=== PATIENT | female | born 1975 | race Caucasian/White ===

== ENCOUNTER 2019-02-08 16:50 | Inpatient (IN) | payer OTHER ==
[2019-02-08 18:42] LABS: ADD MAN DIFF? NO
[2019-02-08 18:48] LABS: WHITE BLOOD COUNT 7.1 10^3/ul (4.8-10.8)
[2019-02-08 18:48] LABS: BASOPHILS % 0.6 % (0.0-2.0); EOSINOPHILS # 0.1 10^3/ul (0.0-0.5); EOSINOPHILS % 0.8 % (0.0-7.0); HEMATOCRIT 34.9 % (37.0-47.0); HEMOGLOBIN 10.6 g/dl (12.0-16.0); LYMPHOCYTES # 1.6 10^3/ul (0.8-2.9); MEAN CORPUSCULAR HGB CONC 30.4 g/dl (32.0-37.0); MEAN PLATELET VOLUME 9.1 fl (7.4-10.4); MONOCYTE # 0.3 10^3/ul (0.3-0.9); MONOCYTES % 4.2 % (0.0-11.0); NEUTROPHIL # 5.1 10^3/ul (1.6-7.5); PLATELET COUNT 275 10^3/UL (140-415); RED BLOOD COUNT 4.42 10^6/ul (4.20-5.40); RED CELL DISTRIBUTION WIDTH 15.8 % (11.5-14.5)
[2019-02-08 18:58] LABS: URINE BLOOD (Dip) POC Trace-intact (NEGATIVE); URINE GLUCOSE (Dip) POC Negative (NEGATIVE); URINE KETONES (Dip) POC Negative (NEGATIVE); URINE LEUKOCYTE EST (Dip) POC Negative (NEGATIVE); URINE NITRITE (Dip) POC Negative (NEGATIVE); URINE TOTAL PROTEIN POC Negative (NEGATIVE)
[2019-02-08 18:58] LABS: URINE PH (Dip) POC 7.5 (5.0-8.5)
[2019-02-08 19:08] LABS: INR 1.17; PT RATIO 1.2
[2019-02-08 19:09] LABS: ALANINE AMINOTRANSFERASE 15 IU/L (13-69); ALBUMIN 4.3 g/dl (3.3-4.9); ALBUMIN/GLOBULIN RATIO 0.93; ALKALINE PHOSPHATASE 62 IU/L (42-121); ANION GAP 8 (5-13); ASPARTATE AMINO TRANSFERASE 18 IU/L (15-46); BILIRUBIN,INDIRECT 1.1 mg/dl (0-1.1); BILIRUBIN,TOTAL 1.1 mg/dl (0.2-1.3); BLOOD UREA NITROGEN 9 mg/dl (7-20); CALCIUM 9.4 mg/dl (8.4-10.2); CARBON DIOXIDE 28 mmol/L (21-31); CHLORIDE 104 mmol/L (97-110); CREATININE 0.74 mg/dl (0.44-1.00); Estimated GFR > 60 mL/min (>60); GLUCOSE 122 mg/dl (70-220); POTASSIUM 3.9 mmol/L (3.5-5.1); SODIUM 140 mmol/L (135-144); TOTAL PROTEIN 8.9 g/dl (6.1-8.1)
[2019-02-08] MEDS: PIPER-TAZO 3.375 GM IV (PMX) 100 ML IVPB (19:26)
[2019-02-08] MEDS: VANCOMYCIN 1 GM (PMX) 250 ML IVPB (19:30)
[2019-02-08 19:55] LABS: ERYTHROCYTE SEDIMENTATION RATE 27 mm/Hr (0-20)
[2019-02-08] MEDS ORDERED: DOCUSATE SODIUM 100 MG CAP PO (20:00)
[2019-02-08] MEDS ORDERED: NACL 0.9% 3 ML SYG IV (20:00)
[2019-02-08] MEDS ORDERED: ONDANSETRON 4 MG INJ IV (20:00)
[2019-02-08] MEDS ORDERED: BISACODYL (EC) 5 MG TAB PO (20:00)
[2019-02-08] MEDS ORDERED: HYDROCODONE/APAP (5/325) TAB PO (20:00)
[2019-02-08 22:50] LABS: LACTIC ACID 1.6 mmol/L (0.5-2.0)
[2019-02-09] MEDS ORDERED: VANCOMYCIN IV PER PHARMACY XX
[2019-02-09] MEDS: ACETAMINOPHEN 325 MG TAB PO ×2 (00:12→18:26)
[2019-02-09] MEDS: PIPER-TAZO 3.375 GM IV (PMX) 100 ML IVPB ×4 (01:08→21:57)
[2019-02-09 02:18] LABS: LACTIC ACID 1.9 mmol/L (0.5-2.0)
[2019-02-09] MEDS: LIDOCAINE 1% (MPF) 5 ML VIAL SC (03:00)
[2019-02-09] MEDS: VANCOMYCIN 1 GM 250 ML IVPB (04:39)
[2019-02-09] MEDS: ATENOLOL 25 MG TAB PO (08:17)
[2019-02-09] MEDS: HYDROCHLOROTHIAZIDE 25 MG TAB PO (08:17)
[2019-02-09] MEDS: LOSARTAN 50 MG TAB PO (08:18)
[2019-02-09] MEDS: LEVOTHYROXINE 125 MCG TAB PO (08:18)
[2019-02-09 08:21] LABS: ADD MAN DIFF? NO
[2019-02-09 08:28] LABS: WHITE BLOOD COUNT 6.1 10^3/ul (4.8-10.8)
[2019-02-09 08:28] LABS: BASOPHIL # 0.1 10^3/ul (0.0-0.1); BASOPHILS % 0.8 % (0.0-2.0); EOSINOPHILS # 0.1 10^3/ul (0.0-0.5); EOSINOPHILS % 2.3 % (0.0-7.0); HEMATOCRIT 34.1 % (37.0-47.0); HEMOGLOBIN 10.4 g/dl (12.0-16.0); LYMPHOCYTES % 32.9 % (15.0-51.0); MEAN CORPUSCULAR HGB CONC 30.5 g/dl (32.0-37.0); MEAN CORPUSCULAR VOLUME 78.6 fl (82.0-101.0); MONOCYTE # 0.4 10^3/ul (0.3-0.9); MONOCYTES % 6.1 % (0.0-11.0); NEUTROPHIL # 3.5 10^3/ul (1.6-7.5); NEUTROPHILS % 57.6 % (39.0-77.0); PLATELET COUNT 251 10^3/UL (140-415); RED BLOOD COUNT 4.34 10^6/ul (4.20-5.40); RED CELL DISTRIBUTION WIDTH 16.1 % (11.5-14.5)
[2019-02-09 08:43] LABS: HEMOGLOBIN A1C 5.4 % (0-5.9)
[2019-02-09 08:59] LABS: ALANINE AMINOTRANSFERASE 12 IU/L (13-69); ALBUMIN 3.8 g/dl (3.3-4.9); ALBUMIN/GLOBULIN RATIO 1.08; ALKALINE PHOSPHATASE 49 IU/L (42-121); ANION GAP 13 (5-13); ASPARTATE AMINO TRANSFERASE 15 IU/L (15-46); BILIRUBIN,INDIRECT 1.3 mg/dl (0-1.1); BILIRUBIN,TOTAL 1.3 mg/dl (0.2-1.3); BLOOD UREA NITROGEN 8 mg/dl (7-20); CALCIUM 9.2 mg/dl (8.4-10.2); CARBON DIOXIDE 26 mmol/L (21-31); CHLORIDE 103 mmol/L (97-110); CHOL/HDL RATIO 3.7 RATIO; CHOLESTEROL 148 mg/dl (100-200); CREATININE 0.76 mg/dl (0.44-1.00); Estimated GFR > 60 mL/min (>60); GLUCOSE 113 mg/dl (70-220); HDL CHOLESTEROL 39 mg/dl (34-88); LDL CHOLESTEROL,CALCULATED 89 mg/dl; MAGNESIUM 1.8 mg/dl (1.7-2.5); POTASSIUM 4.2 mmol/L (3.5-5.1); SODIUM 142 mmol/L (135-144); TOTAL PROTEIN 7.3 g/dl (6.1-8.1); TRIGLYCERIDES 99 mg/dl (0-149)
[2019-02-09] MEDS ORDERED: NON-FORMULARY/PATIENT OWN MED (Losartan-Hydrochlorothiazide (Losartan-HCTZ) 1 TAB) PO (09:00)
[2019-02-09] MEDS ORDERED: LEVOTHYROXINE 125 MCG TAB PO (09:00)
[2019-02-09 09:28] LABS: ERYTHROCYTE SEDIMENTATION RATE 35 mm/Hr (0-20)
[2019-02-09] MEDS: VANCOMYCIN HCL 1.5 GM in SOD CHLORIDE 0.9% 250 ML IVPB (16:25)
[2019-02-10] MEDS: PIPER-TAZO 3.375 GM IV (PMX) 100 ML IVPB (01:25)
[2019-02-10] MEDS: VANCOMYCIN HCL 1.5 GM in SOD CHLORIDE 0.9% 250 ML IVPB (04:33)
[2019-02-10 08:01] LABS: ADD MAN DIFF? NO
[2019-02-10 08:07] LABS: WHITE BLOOD COUNT 5.6 10^3/ul (4.8-10.8)
[2019-02-10 08:07] LABS: BASOPHIL # 0.1 10^3/ul (0.0-0.1); BASOPHILS % 0.9 % (0.0-2.0); EOSINOPHILS # 0.1 10^3/ul (0.0-0.5); EOSINOPHILS % 2.3 % (0.0-7.0); HEMATOCRIT 35.4 % (37.0-47.0); LYMPHOCYTES # 1.5 10^3/ul (0.8-2.9); LYMPHOCYTES % 26.6 % (15.0-51.0); MEAN CORPUSCULAR HEMOGLOBIN 24.1 pg (29.0-33.0); MEAN CORPUSCULAR HGB CONC 31.1 g/dl (32.0-37.0); MEAN CORPUSCULAR VOLUME 77.5 fl (82.0-101.0); MEAN PLATELET VOLUME 9.2 fl (7.4-10.4); MONOCYTE # 0.3 10^3/ul (0.3-0.9); MONOCYTES % 5.4 % (0.0-11.0); NEUTROPHIL # 3.6 10^3/ul (1.6-7.5); NEUTROPHILS % 64.4 % (39.0-77.0); PLATELET COUNT 237 10^3/UL (140-415); RED BLOOD COUNT 4.57 10^6/ul (4.20-5.40); RED CELL DISTRIBUTION WIDTH 16.1 % (11.5-14.5)
[2019-02-10] MEDS: ATENOLOL 25 MG TAB PO (08:26)
[2019-02-10] MEDS: HYDROCHLOROTHIAZIDE 25 MG TAB PO (08:26)
[2019-02-10] MEDS: LEVOTHYROXINE 125 MCG TAB PO (08:26)
[2019-02-10] MEDS: LOSARTAN 50 MG TAB PO (08:29)
[2019-02-10] MEDS: ENOXAPARIN 40 MG/0.4 ML SYG SC (08:29)
[2019-02-10 08:31] LABS: ALANINE AMINOTRANSFERASE 11 IU/L (13-69); ALKALINE PHOSPHATASE 54 IU/L (42-121); ANION GAP 10 (5-13); ASPARTATE AMINO TRANSFERASE 16 IU/L (15-46); BILIRUBIN,INDIRECT 1.1 mg/dl (0-1.1); BILIRUBIN,TOTAL 1.1 mg/dl (0.2-1.3); BLOOD UREA NITROGEN 10 mg/dl (7-20); CALCIUM 9.2 mg/dl (8.4-10.2); CARBON DIOXIDE 26 mmol/L (21-31); CHLORIDE 105 mmol/L (97-110); CREATININE 0.79 mg/dl (0.44-1.00); Estimated GFR > 60 mL/min (>60); GLUCOSE 126 mg/dl (70-220); IRON 40 ug/dl (35-150); POTASSIUM 3.7 mmol/L (3.5-5.1); SODIUM 141 mmol/L (135-144); TOTAL PROTEIN 8.4 g/dl (6.1-8.1)
[2019-02-10] MEDS: L ACIDOPHIL/B LACTIS/B LONGUM CAPSULE PO ×2 (08:32→20:39)
[2019-02-10 08:38] LABS: MAGNESIUM 1.9 mg/dl (1.7-2.5)
[2019-02-10 08:38] LABS: PHOSPHORUS 4.4 mg/dl (2.5-4.9)
[2019-02-10 08:40] LABS: % IRON SATURATION 12 % SAT (22-52); TOTAL IRON BINDING CAPACITY 333 ug/dl (241-421)
[2019-02-10 09:16] LABS: ERYTHROCYTE SEDIMENTATION RATE 20 mm/Hr (0-20)
[2019-02-10 09:45] LABS: FERRITIN 9.6 ng/ml (6.2-137.0)
[2019-02-10] MEDS ORDERED: IBUPROFEN 200 MG TAB PO (11:30)
[2019-02-10 11:44] LABS: FREE T4 (FREE THYROXINE) 2.15 ng/dl (0.64-1.79)
[2019-02-10] MEDS: IBUPROFEN 600 MG TAB PO ×2 (12:20→23:15)
[2019-02-10 12:34] LABS: PROCALCITONIN 0.02 ng/mL (0.00-0.10)
[2019-02-10] MEDS: AMPICILLIN/SULB 3 GM/NS (PMX) 100 ML IVPB ×2 (12:41→18:11)
[2019-02-10] MEDS ORDERED: CLINDAMYCIN 900 MG INJ IV (14:00)
[2019-02-10] MEDS: CLINDAMYCIN 900 MG/D5W (PMX) 50 ML IVPB ×2 (15:46→22:58)
[2019-02-11] MEDS: AMPICILLIN/SULB 3 GM/NS (PMX) 100 ML IVPB ×4 (00:27→18:17)
[2019-02-11] MEDS: CLINDAMYCIN 900 MG/D5W (PMX) 50 ML IVPB ×3 (05:01→22:05)
[2019-02-11 06:38] LABS: ADD MAN DIFF? NO
[2019-02-11 06:41] LABS: BASOPHIL # 0.1 10^3/ul (0.0-0.1); EOSINOPHILS # 0.2 10^3/ul (0.0-0.5); EOSINOPHILS % 2.5 % (0.0-7.0); HEMATOCRIT 33.3 % (37.0-47.0); HEMOGLOBIN 10.5 g/dl (12.0-16.0); LYMPHOCYTES # 2.2 10^3/ul (0.8-2.9); MEAN CORPUSCULAR HEMOGLOBIN 24.2 pg (29.0-33.0); MEAN CORPUSCULAR HGB CONC 31.5 g/dl (32.0-37.0); MEAN CORPUSCULAR VOLUME 76.9 fl (82.0-101.0); MEAN PLATELET VOLUME 9.3 fl (7.4-10.4); MONOCYTE # 0.5 10^3/ul (0.3-0.9); MONOCYTES % 6.3 % (0.0-11.0); NEUTROPHILS % 62.8 % (39.0-77.0); PLATELET COUNT 254 10^3/UL (140-415); RED BLOOD COUNT 4.33 10^6/ul (4.20-5.40); RED CELL DISTRIBUTION WIDTH 15.9 % (11.5-14.5)
[2019-02-11 07:25] LABS: MAGNESIUM 2.1 mg/dl (1.7-2.5)
[2019-02-11 07:25] LABS: PHOSPHORUS 5.4 mg/dl (2.5-4.9)
[2019-02-11 07:36] LABS: ALANINE AMINOTRANSFERASE 9 IU/L (13-69); ALBUMIN 3.6 g/dl (3.3-4.9); ALBUMIN/GLOBULIN RATIO 0.97; ALKALINE PHOSPHATASE 46 IU/L (42-121); ANION GAP 13 (5-13); ASPARTATE AMINO TRANSFERASE 16 IU/L (15-46); BILIRUBIN,INDIRECT 0.6 mg/dl (0-1.1); BILIRUBIN,TOTAL 0.6 mg/dl (0.2-1.3); BLOOD UREA NITROGEN 21 mg/dl (7-20); CALCIUM 9.5 mg/dl (8.4-10.2); CARBON DIOXIDE 25 mmol/L (21-31); CHLORIDE 107 mmol/L (97-110); CREATININE 1.44 mg/dl (0.44-1.00); Estimated GFR 40 mL/min (>60); GLUCOSE 147 mg/dl (70-220); POTASSIUM 3.9 mmol/L (3.5-5.1); SODIUM 145 mmol/L (135-144); TOTAL PROTEIN 7.3 g/dl (6.1-8.1)
[2019-02-11 07:48] LABS: C-REACTIVE PROTEIN 1.3 mg/dl (0.0-0.9)
[2019-02-11] MEDS: L ACIDOPHIL/B LACTIS/B LONGUM CAPSULE PO ×2 (08:37→20:52)
[2019-02-11] MEDS: FLUCONAZOLE 200 MG TAB PO (08:38)
[2019-02-11] MEDS: LEVOTHYROXINE 125 MCG TAB PO (08:38)
[2019-02-11] MEDS: ATENOLOL 25 MG TAB PO (08:38)
[2019-02-11] MEDS: CHOLECALCIFEROL 2,000 UNIT CAP PO (08:38)
[2019-02-11] MEDS: LOSARTAN 50 MG TAB PO (08:38)
[2019-02-11] MEDS: HYDROCHLOROTHIAZIDE 25 MG TAB PO (08:39)
[2019-02-11] MEDS: DAKINS 0.0125%(1/40) 473 ML SOLUTION TP (08:44)
[2019-02-11 08:46] LABS: ERYTHROCYTE SEDIMENTATION RATE 23 mm/Hr (0-20)
[2019-02-11] MEDS: ENOXAPARIN 40 MG/0.4 ML SYG SC (08:47)
[2019-02-11] MEDS ORDERED: PROPOFOL 20 ML (15:03)
[2019-02-11] MEDS ORDERED: LIDOCAINE 2% (SDV) 5 ML INJ (15:03)
[2019-02-11] MEDS ORDERED: FENTAnyl 50 MCG/ML VIAL (15:05)
[2019-02-11] MEDS ORDERED: MIDAZOLAM 1 MG/ML 2 ML INJ ×2 (15:05→15:48)
[2019-02-11] MEDS ORDERED: ROPIVACAINE 0.5 % 30 ML VIAL (15:10)
[2019-02-11] MEDS ORDERED: CEFAZOLIN 1 GM INJ (15:20)
[2019-02-11] MEDS ORDERED: ONDANSETRON 4 MG INJ (15:50)
[2019-02-12] MEDS: AMPICILLIN/SULB 3 GM/NS (PMX) 100 ML IVPB ×2 (00:05→06:10)
[2019-02-12] MEDS: IBUPROFEN 600 MG TAB PO (00:28)
[2019-02-12] MEDS: CLINDAMYCIN 900 MG/D5W (PMX) 50 ML IVPB (05:00)
[2019-02-12 05:21] LABS: ADD MAN DIFF? NO
[2019-02-12 05:24] LABS: BASOPHIL # 0.1 10^3/ul (0.0-0.1); BASOPHILS % 0.8 % (0.0-2.0); EOSINOPHILS # 0.2 10^3/ul (0.0-0.5); EOSINOPHILS % 2.3 % (0.0-7.0); HEMATOCRIT 31.6 % (37.0-47.0); HEMOGLOBIN 9.9 g/dl (12.0-16.0); LYMPHOCYTES # 2.2 10^3/ul (0.8-2.9); MEAN CORPUSCULAR HEMOGLOBIN 24.9 pg (29.0-33.0); MEAN CORPUSCULAR HGB CONC 31.3 g/dl (32.0-37.0); MEAN CORPUSCULAR VOLUME 79.4 fl (82.0-101.0); MEAN PLATELET VOLUME 9.3 fl (7.4-10.4); MONOCYTE # 0.4 10^3/ul (0.3-0.9); MONOCYTES % 5.1 % (0.0-11.0); NEUTROPHIL # 4.7 10^3/ul (1.6-7.5); NEUTROPHILS % 62.7 % (39.0-77.0); PLATELET COUNT 231 10^3/UL (140-415); RED BLOOD COUNT 3.98 10^6/ul (4.20-5.40)
[2019-02-12 05:24] LABS: WHITE BLOOD COUNT 7.5 10^3/ul (4.8-10.8)
[2019-02-12 05:55] LABS: C-REACTIVE PROTEIN 1.2 mg/dl (0.0-0.9)
[2019-02-12 06:08] LABS: ALANINE AMINOTRANSFERASE 13 IU/L (13-69); ALBUMIN 3.7 g/dl (3.3-4.9); ALBUMIN/GLOBULIN RATIO 0.94; ALKALINE PHOSPHATASE 45 IU/L (42-121); ANION GAP 11 (5-13); ASPARTATE AMINO TRANSFERASE 17 IU/L (15-46); BILIRUBIN,INDIRECT 0.7 mg/dl (0-1.1); BILIRUBIN,TOTAL 0.7 mg/dl (0.2-1.3); BLOOD UREA NITROGEN 18 mg/dl (7-20); CALCIUM 8.7 mg/dl (8.4-10.2); CARBON DIOXIDE 27 mmol/L (21-31); CHLORIDE 104 mmol/L (97-110); CREATININE 1.51 mg/dl (0.44-1.00); Estimated GFR 38 mL/min (>60); GLUCOSE 109 mg/dl (70-220); POTASSIUM 4.1 mmol/L (3.5-5.1); SODIUM 142 mmol/L (135-144); TOTAL PROTEIN 7.6 g/dl (6.1-8.1)
[2019-02-12 07:20] LABS: MAGNESIUM 1.9 mg/dl (1.7-2.5)
[2019-02-12 07:20] LABS: PHOSPHORUS 5.7 mg/dl (2.5-4.9)
[2019-02-12 08:40] LABS: ERYTHROCYTE SEDIMENTATION RATE 40 mm/Hr (0-20)
[2019-02-12] MEDS ORDERED: VANCOMYCIN IV PER PHARMACY XX (09:00)
[2019-02-12] MEDS: ENOXAPARIN 40 MG/0.4 ML SYG SC (09:00)
[2019-02-12] MEDS: L ACIDOPHIL/B LACTIS/B LONGUM CAPSULE PO ×2 (09:08→20:04)
[2019-02-12] MEDS: LOSARTAN 50 MG TAB PO (09:08)
[2019-02-12] MEDS: FLUCONAZOLE 200 MG TAB PO (09:09)
[2019-02-12] MEDS: ATENOLOL 25 MG TAB PO (09:09)
[2019-02-12] MEDS: HYDROCHLOROTHIAZIDE 25 MG TAB PO (09:09)
[2019-02-12] MEDS: LEVOTHYROXINE 125 MCG TAB PO (09:09)
[2019-02-12] MEDS: CHOLECALCIFEROL 2,000 UNIT CAP PO (09:09)
[2019-02-12] MEDS: DAKINS 0.0125%(1/40) 473 ML SOLUTION TP (09:36)
[2019-02-12] MEDS: RIFAMPIN 300 MG CAP PO (11:13)
[2019-02-12] MEDS: VANCOMYCIN HCL 2 GM in SOD CHLORIDE 0.9% 500 ML IVPB (11:13)
[2019-02-12] MEDS ORDERED: hydrALAzine 20 MG INJ IV (15:30)
[2019-02-12] MEDS ORDERED: HEPARIN 5,000 UNIT/1 ML VIAL (19:48)
[2019-02-12] MEDS: HEPARIN 5,000 UNIT/1 ML VIAL SC (20:04)
[2019-02-13 05:29] LABS: ADD MAN DIFF? NO
[2019-02-13 05:33] LABS: BASOPHIL # 0.1 10^3/ul (0.0-0.1); BASOPHILS % 0.9 % (0.0-2.0); EOSINOPHILS # 0.2 10^3/ul (0.0-0.5); EOSINOPHILS % 3.1 % (0.0-7.0); HEMATOCRIT 31.5 % (37.0-47.0); HEMOGLOBIN 9.9 g/dl (12.0-16.0); LYMPHOCYTES # 1.7 10^3/ul (0.8-2.9); LYMPHOCYTES % 29.6 % (15.0-51.0); MEAN CORPUSCULAR HEMOGLOBIN 24.5 pg (29.0-33.0); MEAN CORPUSCULAR HGB CONC 31.4 g/dl (32.0-37.0); MEAN PLATELET VOLUME 9.1 fl (7.4-10.4); MONOCYTE # 0.4 10^3/ul (0.3-0.9); NEUTROPHIL # 3.5 10^3/ul (1.6-7.5); NEUTROPHILS % 60.1 % (39.0-77.0); PLATELET COUNT 215 10^3/UL (140-415); RED BLOOD COUNT 4.04 10^6/ul (4.20-5.40)
[2019-02-13 05:33] LABS: WHITE BLOOD COUNT 5.8 10^3/ul (4.8-10.8)
[2019-02-13 06:00] LABS: ANION GAP 8 (5-13); BLOOD UREA NITROGEN 15 mg/dl (7-20); CALCIUM 8.9 mg/dl (8.4-10.2); CARBON DIOXIDE 28 mmol/L (21-31); CHLORIDE 103 mmol/L (97-110); CREATININE 1.18 mg/dl (0.44-1.00); Estimated GFR 50 mL/min (>60); GLUCOSE 104 mg/dl (70-220); POTASSIUM 3.8 mmol/L (3.5-5.1); SODIUM 139 mmol/L (135-144)
[2019-02-13 06:02] LABS: MAGNESIUM 1.9 mg/dl (1.7-2.5)
[2019-02-13 06:02] LABS: C-REACTIVE PROTEIN 1.1 mg/dl (0.0-0.9); PHOSPHORUS 4.3 mg/dl (2.5-4.9)
[2019-02-13 08:10] LABS: ERYTHROCYTE SEDIMENTATION RATE 25 mm/Hr (0-20)
[2019-02-13] MEDS: FLUCONAZOLE 200 MG TAB PO (08:25)
[2019-02-13] MEDS: LEVOTHYROXINE 125 MCG TAB PO (08:25)
[2019-02-13] MEDS: L ACIDOPHIL/B LACTIS/B LONGUM CAPSULE PO ×2 (08:25→20:48)
[2019-02-13] MEDS: RIFAMPIN 300 MG CAP PO (08:25)
[2019-02-13] MEDS: HEPARIN 5,000 UNIT/1 ML VIAL SC ×2 (08:26→20:48)
[2019-02-13] MEDS: DAKINS 0.0125%(1/40) 473 ML SOLUTION TP (08:26)
[2019-02-13] MEDS: ATENOLOL 25 MG TAB PO (08:26)
[2019-02-13] MEDS: CHOLECALCIFEROL 2,000 UNIT CAP PO (08:26)
[2019-02-13] MEDS: VANCOMYCIN HCL 1.5 GM in SOD CHLORIDE 0.9% 250 ML IVPB (11:46)
[2019-02-13] MEDS: ACETAMINOPHEN 325 MG TAB PO (12:07)
[2019-02-13] MEDS ORDERED: ENOXAPARIN 40 MG/0.4 ML SYG SC (19:30)
[2019-02-13] MEDS: IBUPROFEN 600 MG TAB PO (20:58)
[2019-02-14 05:40] LABS: ADD MAN DIFF? NO
[2019-02-14 05:43] LABS: WHITE BLOOD COUNT 6.4 10^3/ul (4.8-10.8)
[2019-02-14 05:43] LABS: BASOPHIL # 0.1 10^3/ul (0.0-0.1); BASOPHILS % 1.4 % (0.0-2.0); EOSINOPHILS # 0.2 10^3/ul (0.0-0.5); EOSINOPHILS % 3.3 % (0.0-7.0); HEMATOCRIT 32.7 % (37.0-47.0); HEMOGLOBIN 10.3 g/dl (12.0-16.0); LYMPHOCYTES # 2.3 10^3/ul (0.8-2.9); LYMPHOCYTES % 35.1 % (15.0-51.0); MEAN CORPUSCULAR HEMOGLOBIN 24.3 pg (29.0-33.0); MEAN CORPUSCULAR HGB CONC 31.5 g/dl (32.0-37.0); MEAN CORPUSCULAR VOLUME 77.1 fl (82.0-101.0); MEAN PLATELET VOLUME 9.4 fl (7.4-10.4); MONOCYTE # 0.4 10^3/ul (0.3-0.9); MONOCYTES % 6.7 % (0.0-11.0); NEUTROPHIL # 3.4 10^3/ul (1.6-7.5); NEUTROPHILS % 53.3 % (39.0-77.0); PLATELET COUNT 216 10^3/UL (140-415); RED BLOOD COUNT 4.24 10^6/ul (4.20-5.40); RED CELL DISTRIBUTION WIDTH 15.9 % (11.5-14.5)
[2019-02-14 06:30] LABS: PHOSPHORUS 4.4 mg/dl (2.5-4.9)
[2019-02-14 06:30] LABS: MAGNESIUM 1.9 mg/dl (1.7-2.5)
[2019-02-14 06:43] LABS: ANION GAP 11 (5-13); BLOOD UREA NITROGEN 17 mg/dl (7-20); CALCIUM 9.3 mg/dl (8.4-10.2); CARBON DIOXIDE 26 mmol/L (21-31); CHLORIDE 103 mmol/L (97-110); CREATININE 1.11 mg/dl (0.44-1.00); Estimated GFR 54 mL/min (>60); GLUCOSE 100 mg/dl (70-220); SODIUM 140 mmol/L (135-144)
[2019-02-14] MEDS: HEPARIN 5,000 UNIT/1 ML VIAL SC ×2 (09:00→20:17)
[2019-02-14] MEDS: ATENOLOL 25 MG TAB PO (09:39)
[2019-02-14] MEDS: LEVOTHYROXINE 125 MCG TAB PO (09:39)
[2019-02-14] MEDS: RIFAMPIN 300 MG CAP PO (09:40)
[2019-02-14] MEDS: L ACIDOPHIL/B LACTIS/B LONGUM CAPSULE PO ×2 (09:40→20:09)
[2019-02-14] MEDS: CHOLECALCIFEROL 2,000 UNIT CAP PO (09:40)
[2019-02-14] MEDS: FLUCONAZOLE 200 MG TAB PO (09:40)
[2019-02-14] MEDS: DAKINS 0.0125%(1/40) 473 ML SOLUTION TP (09:48)
[2019-02-14] MEDS: VANCOMYCIN HCL 1.5 GM in SOD CHLORIDE 0.9% 250 ML IVPB (11:27)
[2019-02-14] MEDS: IBUPROFEN 600 MG TAB PO (21:29)
[2019-02-15 05:51] LABS: ADD MAN DIFF? NO
[2019-02-15 06:02] LABS: WHITE BLOOD COUNT 6.3 10^3/ul (4.8-10.8)
[2019-02-15 06:02] LABS: BASOPHIL # 0.1 10^3/ul (0.0-0.1); EOSINOPHILS # 0.2 10^3/ul (0.0-0.5); EOSINOPHILS % 3.5 % (0.0-7.0); HEMATOCRIT 31.7 % (37.0-47.0); HEMOGLOBIN 10.1 g/dl (12.0-16.0); LYMPHOCYTES # 1.9 10^3/ul (0.8-2.9); LYMPHOCYTES % 30.2 % (15.0-51.0); MEAN CORPUSCULAR HEMOGLOBIN 24.6 pg (29.0-33.0); MEAN CORPUSCULAR HGB CONC 31.9 g/dl (32.0-37.0); MEAN CORPUSCULAR VOLUME 77.1 fl (82.0-101.0); MEAN PLATELET VOLUME 9.7 fl (7.4-10.4); MONOCYTE # 0.4 10^3/ul (0.3-0.9); MONOCYTES % 6.7 % (0.0-11.0); NEUTROPHIL # 3.6 10^3/ul (1.6-7.5); NEUTROPHILS % 58.3 % (39.0-77.0); PLATELET COUNT 209 10^3/UL (140-415); RED BLOOD COUNT 4.11 10^6/ul (4.20-5.40); RED CELL DISTRIBUTION WIDTH 15.9 % (11.5-14.5)
[2019-02-15 06:27] LABS: MAGNESIUM 1.8 mg/dl (1.7-2.5)
[2019-02-15 06:27] LABS: PHOSPHORUS 4.9 mg/dl (2.5-4.9)
[2019-02-15 06:40] LABS: ANION GAP 7 (5-13); BLOOD UREA NITROGEN 17 mg/dl (7-20); CALCIUM 9.5 mg/dl (8.4-10.2); CARBON DIOXIDE 27 mmol/L (21-31); CHLORIDE 105 mmol/L (97-110); CREATININE 1.03 mg/dl (0.44-1.00); Estimated GFR 59 mL/min (>60); GLUCOSE 109 mg/dl (70-220); SODIUM 139 mmol/L (135-144)
[2019-02-15] MEDS: FLUCONAZOLE 200 MG TAB PO (08:19)
[2019-02-15] MEDS: L ACIDOPHIL/B LACTIS/B LONGUM CAPSULE PO ×2 (08:19→22:11)
[2019-02-15] MEDS: CHOLECALCIFEROL 2,000 UNIT CAP PO (08:20)
[2019-02-15] MEDS: LEVOTHYROXINE 125 MCG TAB PO (08:20)
[2019-02-15] MEDS: RIFAMPIN 300 MG CAP PO (08:20)
[2019-02-15] MEDS: HEPARIN 5,000 UNIT/1 ML VIAL SC ×2 (08:21→20:58)
[2019-02-15] MEDS: ATENOLOL 25 MG TAB PO (08:21)
[2019-02-15] MEDS: DAKINS 0.0125%(1/40) 473 ML SOLUTION TP (08:33)
[2019-02-15] MEDS: VANCOMYCIN HCL 1.5 GM in SOD CHLORIDE 0.9% 250 ML IVPB (11:11)
[2019-02-15] MEDS: MUPIROCIN 2% 22 GM OINT TOP (11:14)
[2019-02-15 11:29] LABS: VANCOMYCIN,TROUGH 8.2 ug/ml (10.0-20.0)
[2019-02-15 11:57] LABS: FREE T4 (FREE THYROXINE) 1.97 ng/dl (0.64-1.79)
[2019-02-15 19:11] LABS: HEPATITIS C VIRAL ANTIBODY NEGATIVE (NEGATIVE)
[2019-02-15] MEDS: ERGOCALCIFEROL 50,000 UNIT CAP PO (22:10)
[2019-02-15] MEDS: CALCITRIOL 1 MCG INJ IV (22:10)
[2019-02-15] MEDS: VANCOMYCIN 1 GM 250 ML IVPB (22:11)
[2019-02-16] MEDS: IBUPROFEN 600 MG TAB PO ×2 (00:12→21:43)
[2019-02-16 05:33] LABS: ADD MAN DIFF? NO
[2019-02-16 05:36] LABS: RED BLOOD COUNT 4.06 10^6/ul (4.20-5.40)
[2019-02-16 05:36] LABS: WHITE BLOOD COUNT 6.3 10^3/ul (4.8-10.8)
[2019-02-16 05:37] LABS: BASOPHIL # 0.1 10^3/ul (0.0-0.1); EOSINOPHILS # 0.2 10^3/ul (0.0-0.5); EOSINOPHILS % 3.3 % (0.0-7.0); HEMATOCRIT 31.3 % (37.0-47.0); LYMPHOCYTES # 1.8 10^3/ul (0.8-2.9); LYMPHOCYTES % 27.8 % (15.0-51.0); MEAN CORPUSCULAR HEMOGLOBIN 24.6 pg (29.0-33.0); MEAN CORPUSCULAR HGB CONC 31.9 g/dl (32.0-37.0); MEAN CORPUSCULAR VOLUME 77.1 fl (82.0-101.0); MEAN PLATELET VOLUME 9.5 fl (7.4-10.4); MONOCYTE # 0.5 10^3/ul (0.3-0.9); MONOCYTES % 8.1 % (0.0-11.0); NEUTROPHIL # 3.8 10^3/ul (1.6-7.5); NEUTROPHILS % 59.5 % (39.0-77.0); PLATELET COUNT 206 10^3/UL (140-415); RED CELL DISTRIBUTION WIDTH 15.9 % (11.5-14.5)
[2019-02-16 06:05] LABS: PHOSPHORUS 4.3 mg/dl (2.5-4.9)
[2019-02-16 06:05] LABS: MAGNESIUM 1.7 mg/dl (1.7-2.5)
[2019-02-16 06:08] LABS: ANION GAP 9 (5-13); BLOOD UREA NITROGEN 15 mg/dl (7-20); CARBON DIOXIDE 25 mmol/L (21-31); CHLORIDE 106 mmol/L (97-110); CREATININE 0.99 mg/dl (0.44-1.00); Estimated GFR > 60 mL/min (>60); GLUCOSE 93 mg/dl (70-220); POTASSIUM 4.1 mmol/L (3.5-5.1); SODIUM 140 mmol/L (135-144)
[2019-02-16 06:20] LABS: FREE T4 (FREE THYROXINE) 1.69 ng/dl (0.64-1.79)
[2019-02-16 06:20] LABS: FREE T3 2.92 pg/ml (2.77-5.27)
[2019-02-16 08:33] LABS: ERYTHROCYTE SEDIMENTATION RATE 25 mm/Hr (0-20)
[2019-02-16] MEDS ORDERED: MUPIROCIN 2% 22 GM OINT TOP (09:00)
[2019-02-16] MEDS: HEPARIN 5,000 UNIT/1 ML VIAL SC ×2 (09:00→21:00)
[2019-02-16] MEDS: L ACIDOPHIL/B LACTIS/B LONGUM CAPSULE PO ×2 (09:23→21:37)
[2019-02-16] MEDS: CHOLECALCIFEROL 2,000 UNIT CAP PO (09:23)
[2019-02-16] MEDS: RIFAMPIN 300 MG CAP PO (09:23)
[2019-02-16] MEDS: ATENOLOL 25 MG TAB PO (09:24)
[2019-02-16] MEDS: LEVOTHYROXINE 150 MCG TAB PO (09:24)
[2019-02-16] MEDS: FLUCONAZOLE 200 MG TAB PO (09:24)
[2019-02-16] MEDS: MUPIROCIN 2% 22 GM OINT TOP (09:26)
[2019-02-16] MEDS: DAKINS 0.0125%(1/40) 473 ML SOLUTION TP (09:26)
[2019-02-16] MEDS: LIDOCAINE 1% (MPF) 5 ML VIAL SC (09:30)
[2019-02-16] MEDS: VANCOMYCIN 1 GM 250 ML IVPB ×2 (10:50→23:10)
[2019-02-16] MEDS ORDERED: ERGOCALCIFEROL (8000 UNITS/ML PO SYG) PO (15:00)
[2019-02-16] MEDS: ERGOCALCIFEROL 50,000 UNIT CAP PO (16:58)
[2019-02-16] MEDS: CALCITRIOL 1 MCG INJ IV (16:58)
[2019-02-17 05:48] LABS: ADD MAN DIFF? NO
[2019-02-17 05:50] LABS: BASOPHIL # 0.1 10^3/ul (0.0-0.1); BASOPHILS % 1.3 % (0.0-2.0); EOSINOPHILS # 0.2 10^3/ul (0.0-0.5); EOSINOPHILS % 3.4 % (0.0-7.0); HEMOGLOBIN 10.1 g/dl (12.0-16.0); LYMPHOCYTES # 1.5 10^3/ul (0.8-2.9); LYMPHOCYTES % 32.1 % (15.0-51.0); MEAN CORPUSCULAR HEMOGLOBIN 24.9 pg (29.0-33.0); MEAN CORPUSCULAR HGB CONC 32.6 g/dl (32.0-37.0); MEAN CORPUSCULAR VOLUME 76.5 fl (82.0-101.0); MEAN PLATELET VOLUME 9.4 fl (7.4-10.4); MONOCYTE # 0.4 10^3/ul (0.3-0.9); MONOCYTES % 7.5 % (0.0-11.0); NEUTROPHIL # 2.6 10^3/ul (1.6-7.5); NEUTROPHILS % 55.5 % (39.0-77.0); PLATELET COUNT 191 10^3/UL (140-415); RED BLOOD COUNT 4.05 10^6/ul (4.20-5.40); RED CELL DISTRIBUTION WIDTH 16.2 % (11.5-14.5)
[2019-02-17 05:50] LABS: WHITE BLOOD COUNT 4.6 10^3/ul (4.8-10.8)
[2019-02-17 06:04] LABS: MAGNESIUM 1.7 mg/dl (1.7-2.5)
[2019-02-17 06:04] LABS: PHOSPHORUS 4.3 mg/dl (2.5-4.9)
[2019-02-17 06:41] LABS: ANION GAP 7 (5-13); BLOOD UREA NITROGEN 14 mg/dl (7-20); CARBON DIOXIDE 26 mmol/L (21-31); CHLORIDE 107 mmol/L (97-110); CREATININE 0.97 mg/dl (0.44-1.00); Estimated GFR > 60 mL/min (>60); GLUCOSE 90 mg/dl (70-220); SODIUM 140 mmol/L (135-144)
[2019-02-17] MEDS: HEPARIN 5,000 UNIT/1 ML VIAL SC (09:00)
[2019-02-17] MEDS: MUPIROCIN 2% 22 GM OINT TOP (09:01)
[2019-02-17] MEDS: DAKINS 0.0125%(1/40) 473 ML SOLUTION TP (09:02)
[2019-02-17] MEDS: CHOLECALCIFEROL 2,000 UNIT CAP PO (09:03)
[2019-02-17] MEDS: ATENOLOL 25 MG TAB PO (09:03)
[2019-02-17] MEDS: L ACIDOPHIL/B LACTIS/B LONGUM CAPSULE PO (09:03)
[2019-02-17] MEDS: RIFAMPIN 300 MG CAP PO (09:03)
[2019-02-17] MEDS: LEVOTHYROXINE 150 MCG TAB PO (09:06)
[2019-02-17] MEDS: DAPTOMYCIN 700 MG in SOD CHLORIDE 0.9% 100 ML IVPB (11:18)
[2019-02-17] MEDS: ERGOCALCIFEROL (8000 UNITS/ML PO SYG) PO (15:03)
[2019-02-17] MEDS: CALCITRIOL 1 MCG INJ IV (15:03)
[2019-02-17] MEDS: IBUPROFEN 200 MG TAB PO (17:45)
== END 2019-02-17 19:15 | disposition home health service (06) | DRG 464 ==
LOC: E/R 16:50 → 5EC 19:22
PROC: 0JBR0ZZ Excision of Left Foot Subcutaneous Tissue and Fascia, Open Approach (ICD-10-PCS; principal; 2019-02-11 14:58)
PROC: 0JBQ0ZZ Excision of Right Foot Subcutaneous Tissue and Fascia, Open Approach (ICD-10-PCS; 2019-02-11 14:58)
PROC: 0QBN0ZZ Excision of Right Metatarsal, Open Approach (ICD-10-PCS; 2019-02-11 14:58)
PROC: 0QBN0ZX Excision of Right Metatarsal, Open Approach, Diagnostic (ICD-10-PCS; 2019-02-11 14:58)
PROC: 0LBV0ZZ Excision of Right Foot Tendon, Open Approach (ICD-10-PCS; 2019-02-11 14:58)
PROC: 02HV33Z Insertion of Infusion Device into Superior Vena Cava, Percutaneous Approach (ICD-10-PCS; 2019-02-11 14:58)
DX: M86.171 Other acute osteomyelitis, right ankle and foot (principal); N17.9 Acute kidney failure, unspecified; L97.429 Non-pressure chronic ulcer of left heel and midfoot with unspecified severity; E66.01 Morbid (severe) obesity due to excess calories; Z68.39 Body mass index [BMI] 39.0-39.9, adult; Z71.3 Dietary counseling and surveillance; E03.9 Hypothyroidism, unspecified; I10 Essential (primary) hypertension; D50.9 Iron deficiency anemia, unspecified; B35.1 Tinea unguium; B35.3 Tinea pedis; L97.519 Non-pressure chronic ulcer of other part of right foot with unspecified severity; E55.9 Vitamin D deficiency, unspecified; B95.62 Methicillin resistant Staphylococcus aureus infection as the cause of diseases classified elsewhere
CPT/HCPCS: 36415; 36569; 71045; 73630; 73630-LT; 73718; 76937; 80048; 80053; 80061; 80202; 81003; 82306; 82652; 82728; 83036; 83540; 83605; 83735; 84100; 84145; 84439; 84443; 84481; 84703; 85025; 85610; 85651; 85730; 86140; 86803; 87040-91; 87070; 87075; 87086; 87102; 87116; 88304; 88311; 93922; 93970; 99285-25

== ENCOUNTER 2019-03-22 20:58 | Emergency (ER) | payer OTHER ==
[2019-03-22] MEDS: ONDANSETRON 4 MG INJ IV (23:51)
[2019-03-22] MEDS: morphine 2 MG INJ IV (23:51)
[2019-03-22] MEDS: SOD CHLORIDE 0.9% 1,000 ML IV (23:51)
[2019-03-22] MEDS: KETOROLAC 15 MG INJ IV (23:52)
[2019-03-22 23:53] LABS: ADD MAN DIFF? NO
[2019-03-22 23:55] LABS: BASOPHIL # 0.1 10^3/ul (0.0-0.1); EOSINOPHILS # 0.2 10^3/ul (0.0-0.5); EOSINOPHILS % 2.8 % (0.0-7.0); HEMATOCRIT 33.6 % (37.0-47.0); HEMOGLOBIN 10.7 g/dl (12.0-16.0); LYMPHOCYTES # 1.8 10^3/ul (0.8-2.9); LYMPHOCYTES % 26.1 % (15.0-51.0); MEAN CORPUSCULAR HEMOGLOBIN 25.3 pg (29.0-33.0); MEAN CORPUSCULAR HGB CONC 31.8 g/dl (32.0-37.0); MEAN CORPUSCULAR VOLUME 79.4 fl (82.0-101.0); MONOCYTE # 0.4 10^3/ul (0.3-0.9); MONOCYTES % 5.5 % (0.0-11.0); NEUTROPHIL # 4.5 10^3/ul (1.6-7.5); NEUTROPHILS % 64.3 % (39.0-77.0); PLATELET COUNT 244 10^3/UL (140-415); RED BLOOD COUNT 4.23 10^6/ul (4.20-5.40)
[2019-03-22 23:55] LABS: WHITE BLOOD COUNT 7.1 10^3/ul (4.8-10.8)
[2019-03-23 00:13] LABS: ALANINE AMINOTRANSFERASE 23 IU/L (13-69); ALKALINE PHOSPHATASE 66 IU/L (42-121); ANION GAP 7 (5-13); ASPARTATE AMINO TRANSFERASE 26 IU/L (15-46); BILIRUBIN,INDIRECT 0.6 mg/dl (0-1.1); BILIRUBIN,TOTAL 0.6 mg/dl (0.2-1.3); BLOOD UREA NITROGEN 13 mg/dl (7-20); CALCIUM 9.2 mg/dl (8.4-10.2); CARBON DIOXIDE 27 mmol/L (21-31); CHLORIDE 109 mmol/L (97-110); CREATININE 0.82 mg/dl (0.44-1.00); Estimated GFR > 60 mL/min (>60); GLUCOSE 104 mg/dl (70-220); LIPASE 181 U/L (23-300); POTASSIUM 4.1 mmol/L (3.5-5.1); SODIUM 143 mmol/L (135-144)
[2019-03-23 00:14] LABS: ALBUMIN 4.3 g/dl (3.3-4.9); TOTAL PROTEIN 8.2 g/dl (6.1-8.1)
[2019-03-23 01:36] LABS: ADD UMIC NO; UR ASCORBIC ACID NEGATIVE (NEGATIVE); UR BILIRUBIN (Dip) NEGATIVE (NEGATIVE); UR BLOOD (Dip) NEGATIVE (NEGATIVE); UR CLARITY CLEAR (CLEAR); UR COLOR YELLOW (YELLOW); UR GLUCOSE (Dip) NEGATIVE (NEGATIVE); UR KETONES (Dip) NEGATIVE (NEGATIVE); UR LEUKOCYTE ESTERASE (Dip) NEGATIVE Leu/ul (NEGATIVE); UR NITRITE (Dip) NEGATIVE (NEGATIVE); UR SPECIFIC GRAVITY (Dip) 1.013 (1.003-1.030); UR TOTAL PROTEIN (Dip) NEGATIVE (NEGATIVE); UR UROBILINOGEN (Dip) NEGATIVE (NEGATIVE)
== END 2019-03-23 02:45 | disposition home or self-care (01) ==
LOC: FTE 03-23 02:45
DX: K80.20 Calculus of gallbladder without cholecystitis without obstruction (principal); N20.0 Calculus of kidney
CPT/HCPCS: 36415; 74176; 80053; 81003; 81025; 83690; 85025; 96374; 96375; 99285-25